=== PATIENT | female | born 1965 | race African-American/Black ===

== ENCOUNTER 2023-03-26 09:11 | Emergency (ER) | payer OTHER ==
[2023-03-26 09:25] VITALS: BP 122/49; PULSE 78; RESP 18; TEMP 98.8; BMI 33.2
[2023-03-26] MEDS ORDERED: ACETAMINOPHEN 500 MG TABLET (FP) ONE (10:11)
[2023-03-26] MEDS: ACETAMINOPHEN 500 MG TABLET (FP) PO ONE (10:15)
== END 2023-03-26 12:39 | disposition home or self-care (01) ==
LOC: JERFT 09:11
DX: S93.402A Sprain of unspecified ligament of left ankle, initial encounter (principal); M25.572 Pain in left ankle and joints of left foot; R22.42 Localized swelling, mass and lump, left lower limb; W10.9XXA Fall (on) (from) unspecified stairs and steps, initial encounter; X50.1XXA Overexertion from prolonged static or awkward postures, initial encounter
CPT/HCPCS: 73610-TC-LT-FY; 99283-25